=== PATIENT | male | born 1980 | race Caucasian/White ===

== ENCOUNTER 2021-08-11 20:52 | Inpatient (IN) | payer SELFPAY ==
[2021-08-11 20:53] VITALS: BMI 23.0
[2021-08-11] MEDS: hyDROXYzine 25 mg Capsule 50 MG PO (21:05)
[2021-08-11] MEDS: trazodone 50 mg Tablet PO (21:05)
[2021-08-11 22:00] VITALS: BP 138/76; PULSE 104; RESP 18; TEMP 36.8; O2SAT 99
[2021-08-11] MEDS: quetiapine 300 mg Tablet PO (22:10)
[2021-08-11] MEDS: mirtazapine 30 mg Tablet PO (22:10)
[2021-08-12 06:00] VITALS: RESP 16
[2021-08-12] MEDS: OLANZapine 5 mg ODT PO ×2 (09:02→14:33)
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
[2021-08-12 14:00] VITALS: BP 138/76; PULSE 18; RESP 16; TEMP 36.8; O2SAT 99
[2021-08-12] MEDS: hyDROXYzine 25 mg Capsule 50 MG PO (18:11)
[2021-08-12 19:44] VITALS: BP 149/94; PULSE 72; RESP 18; TEMP 36.6; O2SAT 99
[2021-08-12] MEDS: quetiapine 300 mg Tablet PO (20:36)
[2021-08-12] MEDS: mirtazapine 30 mg Tablet PO (20:37)
[2021-08-13 06:00] VITALS: BP 116/75; PULSE 70; RESP 20; TEMP 36.6; O2SAT 98
[2021-08-13] MEDS: hyDROXYzine 25 mg Capsule 50 MG PO ×2 (13:44→23:27)
--- NOTE | 2021-08-13 13:44 | PC.NURSE ---
PRN VISTARIL 50 MG GIVEN PO PER PT C/O STATED ANXIETY. PT UP SMILING AND CONVERSING PLEASANTLY WITH STAFF.
[2021-08-13 13:51] VITALS: BP 116/75; PULSE 70; RESP 20; TEMP 36.6; O2SAT 98
[2021-08-13 14:23] VITALS: BP 129/89; PULSE 95; RESP 18; TEMP 36.5; O2SAT 99
[2021-08-13] MEDS: nicotine 21 mg Patch 1 PATCH TRANSDERMA (14:35)
--- NOTE | 2021-08-13 15:10 | PC.NURSE ---
Dr Lange in with patient.
[2021-08-13] MEDS: blistex lip oint 7 gm Tube 1 APPLIC TOPICAL (16:19)
--- NOTE | 2021-08-13 17:34 | W.PM.NPUPNS ---
Subjective NPU Subjective: 40-year-old white male with a history of PTSD and depression admitted with depressed mood suicidal ideation sleep disturbance nightmares and difficulties with concentration. He reports homelessness. He was reporting difficulty with managing his anger outbursts and reports that he had been using THC and Meth in the recent past. Patient reports that his suicidal thoughts have been better and reports that he is willing to have his medications adjusted. He reports receiving outpatient treatment many years ago. Mental Status Exam MSE Comments: disheveled appearance, poor eye contact, remained hypervigilant on the unit. His gait steady and normal today. , There was no evidence of any abnormal involuntary motor movements, tics or tremors, His attention and concentration was poor. Mood was described as depressed. His affect was mood congruent and restricted in range.? Speech: normal rate rhythm and prosody.? there was no evidence of any delusional thinking, he did not appear to be responding to internal stimuli, He was alert and oriented to person place and time. ? Vitals/I&O/Wt Last Vital Signs Temp 97.7 F 08/13/21 14:23 Pulse 95 08/13/21 14:23 Resp 18 08/13/21 14:23 BP 129/89 08/13/21 14:23 Pulse Ox 99 08/13/21 14:23 Weight last 48 hrs Weight 77.111 kg A&P Assessment and plan (1) PTSD (post-traumatic stress disorder): Status: Acute (2) Depressive disorder: Status: Acute Plan Plan 1.? Engage patient in milieu, individual and group therapy, 2.? Increase Seroquel 400mg at night and remeron at 30mg at night.? 3.? Will attempt to gather collateral information. 4. Continue 15 minute observation Attestations NPU Medical Necessity Statement*: The patient will be admitted for at least 2 midnights to NPU.? Length of stay likely 3-5 days.? Coding Level of Care Code Established Pt Acute Professor/Nurse Anesthetist for Marlene Elliott Patient Type Established History Problem Focused Exam Problem Focused Medical Decision Making Straight Forward Diagnoses PTSD (post-traumatic stress disorder) F43.10 Depressive disorder F32.A
[2021-08-13] MEDS: nicotine 2 mg Gum BUCCAL (18:12)
[2021-08-13] MEDS: OLANZapine 5 mg ODT PO (18:12)
[2021-08-13 19:50] VITALS: BP 136/93; PULSE 99; RESP 17; TEMP 36.9; O2SAT 97
[2021-08-13] MEDS: nicotine 4 mg lozenge MUCOUS MEM (20:13)
[2021-08-13] MEDS: quetiapine 100 mg Tablet 400 MG PO (20:32)
[2021-08-13] MEDS: mirtazapine 30 mg Tablet PO (20:33)
[2021-08-13] MEDS: trazodone 50 mg Tablet PO (23:27)
--- NOTE | 2021-08-13 23:46 | PC.NURSE ---
PRN PT WAS HAVING TROUBLE SLEEPING. VISTERIL AND TRAZADONE GIVEN.
[2021-08-14 06:00] VITALS: BP 123/79; PULSE 77; RESP 16; TEMP 36.6; O2SAT 98
[2021-08-14] MEDS: nicotine 2 mg Gum BUCCAL ×2 (10:48→16:52)
[2021-08-14] MEDS: hyDROXYzine 25 mg Capsule 50 MG PO (13:37)
--- NOTE | 2021-08-14 13:38 | PC.NURSE ---
PRN VISTARIL 50 MG GIVEN PO PER PT C/O STATED ANXIETY
--- NOTE | 2021-08-14 13:41 | P.NPUPN_ITS ---
Subjective NPU Subjective: 40-year-old white male with a history of PTSD and depression admitted with depressed mood, suicidal ideation sleep disturbance nightmares and difficulties with concentration.? He reports improved sleep with adjustment of seroquel and reports that he has been feeling sad with the restarting of remeron. He reports concern about homelessness but reports that he wishes to receive more intensive rehabilitation for substance abuse related issues. n Mental Status Exam MSE Comments: improved hygiene, intermittent eye contact, less hypervigilant on interview. ? His gait steady and normal today.? , There was no evidence of any abnormal involuntary motor movements, tics or tremors, His attention and concentration was poor. ? Mood was described as depressed. His affect was mood congruent but less restricted in range Speech: normal rate rhythm and prosody.? there was no evidence of any delusional thinking, he did not appear to be responding to internal stimuli, He was alert and oriented to person place and time. ? Vitals/I&O/Wt Last Vital Signs Temp 98 F 08/15/21 12:45 Pulse 69 08/15/21 12:45 Resp 16 08/15/21 12:45 BP 115/65 08/15/21 12:45 Pulse Ox 98 08/15/21 12:45 A&P Assessment and plan (1) PTSD (post-traumatic stress disorder): Status: Acute (2) Suicidal ideation: Status: Acute Plan 1.? Engage patient in milieu, individual and group therapy, 2.? Continue Seroquel 400mg at night and remeron at 30mg at night.? 3.? Referral for outpatient psychiatric treatment 4.? Continue 15 minute observation Attestations NPU Medical Necessity Statement*: The patient continues to require acute inpatient inpatient hospitalization while adjustments in medication made.? Length of stay likely 1-2 days.? Coding Level of Care Code Established Pt Acute Ios Software Engineer for Marlene Fwciara Patient Type Established History Problem Focused Exam Problem Focused Medical Decision Making Straight Forward Diagnoses PTSD (post-traumatic stress disorder) F43.10 Suicidal ideation R45.859
[2021-08-14 14:00] VITALS: BP 125/86; PULSE 100; RESP 20; TEMP 36.7; O2SAT 98
[2021-08-14] MEDS: OLANZapine 5 mg ODT PO (16:09)
--- NOTE | 2021-08-14 16:09 | PC.NURSE ---
PRN ZYPREXA ZYDIS 5 MG GIVEN PO PER PT C/O AGITATION, PT UPSET, WANTING TO BE DISCHARGED. STAFF EDUCATED HE WOULD BE SPEAKING WITH PHYSICIAN SHORTLY. PT VERBALIZED UNDERSTANDING.
[2021-08-14] MEDS: trazodone 50 mg Tablet PO (20:11)
[2021-08-14] MEDS: quetiapine 100 mg Tablet 400 MG PO (20:11)
[2021-08-14] MEDS: mirtazapine 30 mg Tablet PO (20:11)
[2021-08-14 20:30] VITALS: BP 120/77; PULSE 90; RESP 18; TEMP 36.7; O2SAT 92
[2021-08-14 21:38] VITALS: BP 120/77; PULSE 90; RESP 18; TEMP 36.7; O2SAT 92
--- NOTE | 2021-08-15 01:00 | PC.NURSE ---
PRN PT REQUESTED TRAZADONE TO HELP HIM SLEEP. PT IS NOW RESTING IN BED.
[2021-08-15 06:00] VITALS: BP 115/65; PULSE 69; RESP 16; TEMP 36.6; O2SAT 98
[2021-08-15] MEDS: nicotine 4 mg lozenge MUCOUS MEM ×2 (07:52→11:57)
[2021-08-15] MEDS: OLANZapine 5 mg ODT PO ×2 (07:52→11:57)
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
[2021-08-15 12:45] VITALS: BP 115/65; PULSE 69; RESP 16; TEMP 36.6; O2SAT 98
== END 2021-08-15 13:06 | disposition home or self-care (01) | DRG 881 ==
PROVIDERS: Admitting Provider Psychiatry & Neurology Psychiatry; Visit Provider Psychiatry & Neurology Psychiatry
DX: F32.A Depression, unspecified (principal); R45.851 Suicidal ideations; Z59.00 Homelessness unspecified; F15.90 Other stimulant use, unspecified, uncomplicated; F12.90 Cannabis use, unspecified, uncomplicated; I10 Essential (primary) hypertension; F43.10 Post-traumatic stress disorder, unspecified; G47.9 Sleep disorder, unspecified
CPT/HCPCS: 97165